=== PATIENT | female | born 1960 | race American Indian/Alaskan Native ===

== ENCOUNTER 2021-06-28 19:52 | Emergency (ER) | payer SELFPAY ==
--- NOTE | 2021-06-28 20:44 | EDM.PDOC ---
ED HPI GENERAL MEDICAL PROBLEM - General Chief Complaint: General Stated Complaint: MEDICAL VIA WALLACE Time Seen by Provider: 06/28/21 20:02 Source of Information: Reports: Patient, EMS History Limitations: Reports: No Limitations - History of Present Illness INITIAL COMMENTS - FREE TEXT/NARRATIVE: Is a 61-year-old female brought in by [facility] for evaluation of acute worsening of dyspnea. The patient is from [place] but is up here helping her sister clean out her house and [place]. 6 days ago while cleaning out the basement they came into a large quantity of black mold. The patient does not smoke and denies any significant past medical history. She has not had any fever but has had increasing dyspnea, generalized weakness, and a cough that is been minimally productive. The patient has not had much of an appetite but states that she has been trying to stay hydrated. She is urinated about once per day. The patient has been vaccinated for Covid and influenza. She received her second dose of the Covid vaccine in the influenza vaccine 6 days ago before the onset of her symptoms. 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 left falopian tube removed Social & Family History - Tobacco Use Tobacco Use Status *Q: Never Tobacco User - Recreational Drug Use Recreational Drug Use: No ED ROS GENERAL - Review of Systems Review Of Systems: See Below Constitutional: Reports: Weakness (Generalized), Decreased Appetite HEENT: Reports: No Symptoms Respiratory: Reports: Shortness of Breath, Cough, Sputum Cardiovascular: Reports: No Symptoms Endocrine: Reports: Fatigue GI/Abdominal: Reports: No Symptoms : Reports: No Symptoms Musculoskeletal: Reports: No Symptoms Skin: Reports: No Symptoms Neurological: Reports: No Symptoms Psychiatric: Reports: No Symptoms Hematologic/Lymphatic: Reports: No Symptoms Immunologic: Reports: No Symptoms ED EXAM, GENERAL - Physical Exam Exam: See Below Exam Limited By: No Limitations General Appearance: Alert, Moderate Distress Eye Exam: Bilateral Eye: EOMI, PERRL Nose: Nasal Swelling, Nasal Drainage, Clear Rhinorrhea Throat/Mouth: Normal Oropharynx, Normal Voice, No Airway Compromise Head: Atraumatic, Normocephalic Neck: Normal Inspection, Supple. No: Lymphadenopathy (R), Lymphadenopathy (L) Respiratory/Chest: No Respiratory Distress, Lungs Clear, Normal Breath Sounds Cardiovascular: Normal Peripheral Pulses, Regular Rate, Rhythm, No Murmur Peripheral Pulses: 2+: Radial (L), Radial (R) GI/Abdominal: Normal Bowel Sounds, Soft, Non-Tender. No: Guarding, Tender Extremities: Normal Inspection, Normal Range of Motion Neurological: Alert, Oriented, Normal Cognition, No Motor/Sensory Deficits Psychiatric: Normal Affect, Anxious Skin Exam: Warm, Dry, Intact, Normal Color. No: Cyanosis Course - Vital Signs Last Recorded V/S: Last Vital Signs Temp 35.6 C L 06/29/21 04:46 Pulse 63 06/29/21 04:46 Resp 18 06/29/21 04:46 BP 95/52 L 06/29/21 04:46 Pulse Ox 95 06/29/21 04:46 - Orders/Labs/Meds Orders: Active Orders 24 hr Category Date Time Status Nurse Communication: Isolation [RC] ASDIRECTED Care 06/29/21 05:22 Active Chest 2V [CR] Stat Exams 06/28/21 20:02 Taken HEPATIC FUNCTION PANEL,[facility] [CHEM] DAILY Lab 06/30/21 05:30 Ordered HEPATIC FUNCTION PANEL,[facility] [CHEM] DAILY Lab 07/01/21 05:30 Ordered HEPATIC FUNCTION PANEL,[facility] [CHEM] DAILY Lab 07/02/21 05:30 Ordered HEPATIC FUNCTION PANEL,[facility] [CHEM] DAILY Lab 07/03/21 05:30 Ordered HEPATIC FUNCTION PANEL,[facility] [CHEM] Stat Lab 06/29/21 05:22 Ordered Sodium Chloride 0.9% [Normal Saline] 1,000 ml Med 06/29/21 00:15 Active IV ASDIRECTED Sodium Chloride 0.9% [Normal Saline] 1,000 ml Med 06/29/21 05:30 Active IV ASDIRECTED Sodium Chloride 0.9% [Saline Flush] Med 06/29/21 00:09 Active 10 ml FLUSH ASDIRECTED PRN dexAMETHasone [Decadron] Med 06/29/21 05:30 Active 6 mg IVPUSH DAILY Isolation [COMM] Stat Oth 06/29/21 05:21 Ordered Saline Lock Insert [OM.PC] Routine Oth 06/29/21 00:09 Ordered Medication Orders Dexamethasone (Dexamethasone 4 Mg/Ml Sdv) 6 mg IVPUSH DAILY CHRISTOPHER Stop: 07/07/21 09:01 Last Admin: 06/29/21 05:28 Dose: 6 mg Documented by: ARIANA Sodium Chloride (Normal Saline) 1,000 mls @ 999 mls/hr IV ASDIRECTED CHRISTOPHER Last Admin: 06/29/21 00:19 Dose: 999 mls/hr Documented by: JAE Sodium Chloride (Normal Saline) 1,000 mls @ 999 mls/hr IV ASDIRECTED CHRISTOPHER Last Admin: 06/29/21 05:29 Dose: 999 mls/hr Documented by: ARIANA Sodium Chloride (Sodium Chloride 0.9% 10 Ml Syringe) 10 ml FLUSH ASDIRECTED PRN PRN Reason: Keep Vein Open Last Admin: 06/29/21 00:29 Dose: 10 ml Documented by: JAE Labs: Laboratory Tests 06/28/21 06/28/21 06/28/21 Range/Units 20:22 20:23 20:23 WBC 5.9 (4.5-11.0) K/uL RBC 4.93 (3.30-5.50) M/uL Hgb 14.2 (12.0-15.0) g/dL Hct 43.0 (36.0-48.0) % MCV 87 (80-98) fL MCH 29 (27-31) pg MCHC 33 (32-36) % Plt Count 236 (150-400) K/uL Neut % (Auto) 82.1 H (36-66) % Lymph % (Auto) 11.0 L (24-44) % [place] % (Auto) 6.6 H (2-6) % Eos % (Auto) 0.0 L (2-4) % Baso % (Auto) 0.3 (0-1) % Sodium 135 L (140-148) mmol/L Potassium 3.2 L (3.6-5.2) mmol/L Chloride 98 L (100-108) mmol/L Carbon Dioxide 26 (21-32) mmol/L Anion Gap 14.2 H (5.0-14.0) mmol/L BUN 22 H (7-18) mg/dL Creatinine 1.0 (0.6-1.0) mg/dL Est Cr Clr Drug Dosing 48.87 mL/min Estimated GFR (MDRD) 56 L (>60) Glucose 165 H (74-106) mg/dL Lactic Acid (0.4-2.0) mmol/L Calcium 8.4 L (8.5-10.1) mg/dL Ferritin (8-388) ng/ml Total Bilirubin 0.3 (0.2-1.0) mg/dL AST 40 H (15-37) U/L ALT 19 (12-78) U/L Alkaline Phosphatase 90 (46-116) U/L Lactate Dehydrogenase (82-234) U/L C-Reactive Protein 3.80 H (0.0-0.3) mg/dL NT-Pro-B Natriuret Pep 52 (5-125) pg/mL Total Protein 7.1 (6.4-8.2) g/dL Albumin 3.4 (3.4-5.0) g/dL Globulin 3.7 H (2.3-3.5) g/dL Albumin/Globulin Ratio 0.9 L (1.2-2.2) Procalcitonin ng/mL Urine Color (YELLOW) Urine Appearance (CLEAR) Urine pH (5.0-8.0) Ur Specific Armstrong (1.008-1.030) Urine Protein (NEGATIVE) mg/dL Urine Glucose (UA) (NEGATIVE) mg/dL Urine Ketones (NEGATIVE) mg/dL Urine Occult Blood (NEGATIVE) Urine Nitrite (NEGATIVE) Urine Bilirubin (NEGATIVE) Urine Urobilinogen (0.2-1.0) EU/dL Ur Leukocyte Esterase (NEGATIVE) Urine RBC (0-5) Urine WBC (0-5) Ur Epithelial Cells Amorphous Sediment Urine Bacteria Urine Mucus Urine Other SARS-CoV-2 RNA (TABITHA) Positive H (NEGATIVE) 06/28/21 06/29/21 06/29/21 Range/Units 20:33 00:01 00:01 WBC (4.5-11.0) K/uL RBC (3.30-5.50) M/uL Hgb (12.0-15.0) g/dL Hct (36.0-48.0) % MCV (80-98) fL MCH (27-31) pg MCHC (32-36) % Plt Count (150-400) K/uL Neut % (Auto) (36-66) % Lymph % (Auto) (24-44) % [place] % (Auto) (2-6) % Eos % (Auto) (2-4) % Baso % (Auto) (0-1) % Sodium (140-148) mmol/L Potassium (3.6-5.2) mmol/L Chloride (100-108) mmol/L Carbon Dioxide (21-32) mmol/L Anion Gap (5.0-14.0) mmol/L BUN (7-18) mg/dL Creatinine (0.6-1.0) mg/dL Est Cr Clr Drug Dosing mL/min Estimated GFR (MDRD) (>60) Glucose (74-106) mg/dL Lactic Acid 1.0 (0.4-2.0) mmol/L Calcium (8.5-10.1) mg/dL Ferritin 563 H (8-388) ng/ml Total Bilirubin (0.2-1.0) mg/dL AST (15-37) U/L ALT (12-78) U/L Alkaline Phosphatase (46-116) U/L Lactate Dehydrogenase 456 H (82-234) U/L C-Reactive Protein (0.0-0.3) mg/dL NT-Pro-B Natriuret Pep (5-125) pg/mL Total Protein (6.4-8.2) g/dL Albumin (3.4-5.0) g/dL Globulin (2.3-3.5) g/dL Albumin/Globulin Ratio (1.2-2.2) Procalcitonin ng/mL Urine Color Yellow (YELLOW) Urine Appearance Clear (CLEAR) Urine pH 5.5 (5.0-8.0) Ur Specific Armstrong >= 1.030 (1.008-1.030) Urine Protein 100 H (NEGATIVE) mg/dL Urine Glucose (UA) Normal (NEGATIVE) mg/dL Urine Ketones Negative (NEGATIVE) mg/dL Urine Occult Blood Negative (NEGATIVE) Urine Nitrite Negative (NEGATIVE) Urine Bilirubin Negative (NEGATIVE) Urine Urobilinogen 0.2 (0.2-1.0) EU/dL Ur Leukocyte Esterase Negative (NEGATIVE) Urine RBC 0-5 (0-5) Urine WBC 0-5 (0-5) Ur Epithelial Cells Moderate Amorphous Sediment Not seen Urine Bacteria Moderate Urine Mucus Moderate Urine Other SARS-CoV-2 RNA (TABITHA) (NEGATIVE) 06/29/21 Range/Units 00:01 WBC (4.5-11.0) K/uL RBC (3.30-5.50) M/uL Hgb (12.0-15.0) g/dL Hct (36.0-48.0) % MCV (80-98) fL MCH (27-31) pg MCHC (32-36) % Plt Count (150-400) K/uL Neut % (Auto) (36-66) % Lymph % (Auto) (24-44) % [place] % (Auto) (2-6) % Eos % (Auto) (2-4) % Baso % (Auto) (0-1) % Sodium (140-148) mmol/L Potassium (3.6-5.2) mmol/L Chloride (100-108) mmol/L Carbon Dioxide (21-32) mmol/L Anion Gap (5.0-14.0) mmol/L BUN (7-18) mg/dL Creatinine (0.6-1.0) mg/dL Est Cr Clr Drug Dosing mL/min Estimated GFR (MDRD) (>60) Glucose (74-106) mg/dL Lactic Acid (0.4-2.0) mmol/L Calcium (8.5-10.1) mg/dL Ferritin (8-388) ng/ml Total Bilirubin (0.2-1.0) mg/dL AST (15-37) U/L ALT (12-78) U/L Alkaline Phosphatase (46-116) U/L Lactate Dehydrogenase (82-234) U/L C-Reactive Protein (0.0-0.3) mg/dL NT-Pro-B Natriuret Pep (5-125) pg/mL Total Protein (6.4-8.2) g/dL Albumin (3.4-5.0) g/dL Globulin (2.3-3.5) g/dL Albumin/Globulin Ratio (1.2-2.2) Procalcitonin < 0.05 ng/mL Urine Color (YELLOW) Urine Appearance (CLEAR) Urine pH (5.0-8.0) Ur Specific [place] (1.008-1.030) Urine Protein (NEGATIVE) mg/dL Urine Glucose (UA) (NEGATIVE) mg/dL Urine Ketones (NEGATIVE) mg/dL Urine Occult Blood (NEGATIVE) Urine Nitrite (NEGATIVE) Urine Bilirubin (NEGATIVE) Urine Urobilinogen (0.2-1.0) EU/dL Ur Leukocyte Esterase (NEGATIVE) Urine RBC (0-5) Urine WBC (0-5) Ur Epithelial Cells Amorphous Sediment Urine Bacteria Urine Mucus Urine Other SARS-CoV-2 RNA (TABITHA) (NEGATIVE) Meds: Medications Generic Name Dose Route Start Last Admin Trade Name Freq PRN Reason Stop Dose Admin Dexamethasone 6 mg 06/29/21 05:30 06/29/21 05:28 Dexamethasone 4 Mg/Ml Sdv IVPUSH 07/07/21 09:01 6 mg DAILY CHRISTOPHER Administration Sodium Chloride 1,000 mls @ 999 mls/hr 06/29/21 00:15 06/29/21 00:19 Normal Saline IV 999 mls/hr ASDIRECTED CHRISTOPHER Administration Sodium Chloride 1,000 mls @ 999 mls/hr 06/29/21 05:30 06/29/21 05:29 Normal Saline IV 999 mls/hr ASDIRECTED CHRISTOPHER Administration Sodium Chloride 10 ml 06/29/21 00:09 06/29/21 00:29 Sodium Chloride 0.9% 10 Ml Syringe FLUSH 10 ml ASDIRECTED PRN Administration Keep Vein Open Discontinued Medications Generic Name Dose Route Start Last Admin Trade Name Jennifer PRN Reason Stop Dose Admin Acetaminophen 1,000 mg 06/29/21 03:09 06/29/21 03:13 Acetaminophen 500 Mg Tab PO 06/29/21 03:10 1,000 mg ONETIME ONE Administration Remdesivir 200 mg/ Sodium 250 mls @ 250 mls/hr 06/29/21 05:21 Chloride IV 06/29/21 05:22 ONETIME ONE Ibuprofen 400 mg 06/28/21 21:26 06/28/21 21:40 Ibuprofen 400 Mg Tab PO 06/28/21 21:27 400 mg ONETIME ONE Administration - Re-Assessments/Exams Free Text/Narrative Re-Assessment/Exam: 06/28/21 21:29 I reviewed the patient's labs showing a normal CBC with a leukocyte count of 5.9, hemoglobin of 14.2, hematocrit of 43.0, and a platelet count of 236,000. Her comprehensive metabolic panel shows a sodium 135, potassium 3.2, chloride 98, bicarbonate of 26, BUN of 22 with a creatinine 1.0 and a glucose of 165. AST, ALT, and alkaline phosphatase are normal. Her BNP is low at 52. Her CRP is elevated at 3.8. Urinalysis is unremarkable. Patient is positive for COVID-19. A two-view chest x-ray was obtained showing groundglass appearance in bilateral bases consistent with Covid pneumonia. Patient is maintaining saturation at 91% on room air without activity. At this time she does not meet requirements for hospitalization, however, she does meet eligibility for monoclonal antibody therapy which we can schedule for tomorrow morning. 06/29/21 22:15 the patient is unable to find a ride home or to a local hotel so that she can return for monoclonal antibody therapy in the morning. The local taxi service is not operating. We will likely have to board her tonight until she gets a monoclonal therapy in the morning at which time her son can pick her up. 06/29/21 00:14 is become more hypotensive now with a pressure of 85/46. She is sporadically dropped below 90%. We did get an IV established and are giving her a liter of IV normal saline. I am checking a procalcitonin, lactate, lactate dehydrogenase, and ferritin to make sure she is not becoming septic. 06/29/21 04:50 have improvement in her pressures after receiving the liter of normal saline at 95/52, however, over the course of the next hour and a half she continued to drift down into the mid 80s systolic again. At this time I do not believe that she is capable of being treated as an outpatient, however, there is concerned that she may be too unstable to stay on the floor and there is no ICU bed available. We have not initiated pressors yet but it certainly getting close. I did discuss this with the house nursing hardboard supervisor. Currently we are in red status and cannot take any patients. I did attempt transfer by contacting [facility] in [place]. They did not have any beds a vailable. I did discuss the case with [address] [facility]. The patient has been placed on a wait list but they to have no beds available at this time especially for an intermediate patient. I reached out to [facility] and they are checking status of bed situation but also understand the patient is an intermediate level care. 06/29/21 05:05 I discussed the case with Dr. Escobar , Hospitalist at [facility] who accepts the patient in transfer. We will have the patient go by ground ALS. Currently she is not on pressors but there is a worry that she may require it. 06/29/21 05:32 after talking with the hospitalist, Dr. Escobar we initiated a second liter of IV normal saline, dexamethasone 6 mg IV, and remdesivir 200 mg IV. We will have [facility] transfer the patient ALS. Departure - Departure Time of Disposition: 05:33 Disposition: DC/Tfer to [facility] 02 Clinical Impression: COVID-19, Pneumonia due to COVID-19 virus, Hypoxia Hypotension Qualifiers: Hypotension type: unspecified hypotension type Qualified Code(s): I95.9 - Hypotension, unspecified - Discharge Information Instructions: 10 Things You Can Do to Manage Your COVID-19 Symptoms at Home - [facility] (03/19/2021), COVID-19: How to Protect Yourself and Others - [facility], COVID-19: What to Do If You Are Sick- [facility] (11/18/2020) Referrals: PCP,None [Primary Care Provider] - Forms: ED Department Discharge Care Plan Goals: You are found to have a viral pneumonia developing from COVID-19. I have scheduled you for monoclonal antibody therapy in the morning. Your oxygenation is good so you do not require hospitalization at this time. You will be contacted in the morning to arrange for a time to receive the monoclonal antibody therapy. You should go home and quarantine for the next 10 to 14 days based on your symptoms. Return to the emergency room should you have any significant worsening in your shortness of breath, inability to eat or drink resulting in becoming dehydrated, or worsening generalized weakness. Sepsis Event Note (ED) - Evaluation Sepsis Screening Result: No Definite Risk - Focused Exam Vital Signs: Vital Signs Temp Pulse Resp BP Pulse Ox 06/29/21 04:46 35.6 C L 63 18 95/52 L 95 06/29/21 03:09 65 13 92/50 L 94 L 06/29/21 01:58 68 26 H 110/67 95 06/29/21 01:30 65 21 H 102/60 93 L 10/26/21 00:46 65 26 H 94/54 L 94 L 06/29/21 00:19 67 15 80/49 L 93 L 06/28/21 22:01 71 18 91/53 L 91 L 06/28/21 20:21 37.0 C 77 15 99/60 96 06/28/21 20:08 37.0 C 77 15 99/60 96 - Problem List & Annotations (1) COVID-19 SNOMED Code(s): 953073602 Code(s): U07.1 - COVID-19 Status: Acute Priority: High Current Visit: Yes (2) Pneumonia due to COVID-19 virus SNOMED Code(s): 641732775377350885 Code(s): U07.1 - COVID-19; J12.82 - PNEUMONIA DUE TO CORONAVIRUS DISEASE 2019 Status: Acute Priority: High Current Visit: Yes (3) Hypotension SNOMED Code(s): 32802690 Code(s): I95.9 - HYPOTENSION, UNSPECIFIED Status: Acute Priority: High Current Visit: Yes Qualifiers: Hypotension type: unspecified hypotension type Qualified Code(s): I95.9 - Hypotension, unspecified (4) Hypoxia SNOMED Code(s): 791156106 Code(s): R09.02 - HYPOXEMIA Status: Acute Priority: High Current Visit: Yes - Problem List Review Problem List Initiated/Reviewed/Updated: Yes - My Orders Last 24 Hours: My Active Orders 06/28/21 20:02 Chest 2V [CR] Stat 06/29/21 00:09 Sodium Chloride 0.9% [Saline Flush] 10 ml FLUSH ASDIRECTED PRN Saline Lock Insert [OM.PC] Routine 06/29/21 00:15 Sodium Chloride 0.9% [Normal Saline] 1,000 ml IV ASDIRECTED 06/29/21 05:21 Isolation [COMM] Stat 06/29/21 05:22 Nurse Communication: Isolation [RC] ASDIRECTED HEPATIC FUNCTION PANEL,HFP [CHEM] Stat 06/29/21 05:30 Sodium Chloride 0.9% [Normal Saline] 1,000 ml IV ASDIRECTED dexAMETHasone [Decadron] 6 mg IVPUSH DAILY 06/30/21 05:30 HEPATIC FUNCTION PANEL,HFP [CHEM] DAILY 07/01/21 05:30 HEPATIC FUNCTION PANEL,HFP [CHEM] DAILY 07/02/21 05:30 HEPATIC FUNCTION PANEL,HFP [CHEM] DAILY 07/03/21 05:30 HEPATIC FUNCTION PANEL,HFP [CHEM] DAILY - Assessment/Plan Last 24 Hours: My Active Orders 06/28/21 20:02 Chest 2V [CR] Stat 06/29/21 00:09 Sodium Chloride 0.9% [Saline Flush] 10 ml FLUSH ASDIRECTED PRN Saline Lock Insert [OM.PC] Routine 06/29/21 00:15 Sodium Chloride 0.9% [Normal Saline] 1,000 ml IV ASDIRECTED 06/29/21 05:21 Isolation [COMM] Stat 06/29/21 05:22 Nurse Communication: Isolation [RC] ASDIRECTED HEPATIC FUNCTION PANEL,HFP [CHEM] Stat 06/29/21 05:30 Sodium Chloride 0.9% [Normal Saline] 1,000 ml IV ASDIRECTED dexAMETHasone [Decadron] 6 mg IVPUSH DAILY 06/30/21 05:30 HEPATIC FUNCTION PANEL,HFP [CHEM] DAILY 07/01/21 05:30 HEPATIC FUNCTION PANEL,HFP [CHEM] DAILY 07/02/21 05:30 HEPATIC FUNCTION PANEL,HFP [CHEM] DAILY 07/03/21 05:30 HEPATIC FUNCTION PANEL,HFP [CHEM] DAILY
[2021-06-28] MEDS ORDERED: Ibuprofen 400 MG Tab PO ONE (21:26)
[2021-06-29] MEDS ORDERED: Sodium Chloride 0.9% 10 ML Syringe FLUSH PRN (00:09)
[2021-06-29] MEDS ORDERED: Sodium Chloride 0.9% 1,000 ML IV SCH ×2 (00:15→05:30)
[2021-06-29] MEDS ORDERED: Acetaminophen 500 MG Tab PO ONE (03:09)
[2021-06-29] MEDS ORDERED: REMDESIVIR 200 MG in Sodium Chloride 0.9% 250 ML IV ONE (05:21)
[2021-06-29] MEDS ORDERED: Dexamethasone 4 MG/ML SDV IVPUSH SCH (05:30)
--- NOTE | 2021-06-29 08:48 | CR ---
CHEST: 2 view CLINICAL HISTORY:Dyspnea COMPARISON:None FINDINGS: There is patchy predominantly interstitial infiltrate in both lower lung vasquez, greater on the left. Heart size and pulmonary vascularity are normal. There are atherosclerotic changes in the aorta. Impression: Diffuse bilateral patchy predominantly interstitial infiltrate most suggestive of pneumonitis.
== END 2021-06-29 06:10 ==
LOC: JP.ED 19:52
DX: U07.1 COVID-19 (principal); J12.82 Pneumonia due to coronavirus disease 2019; R09.02 Hypoxemia; I95.9 Hypotension, unspecified
CPT/HCPCS: 36415; 71046; 80053; 81001; 82728; 83605; 83615; 83880; 84145; 85025; 86140; 87635; 99285; A9270; J1100; J7030; J7050; U0002